=== PATIENT | male | born 1935 ===

== ENCOUNTER 2016-12-25 15:45 | Outpatient (RCR) | payer OTHER ==
[~2016-12-25 15:45] MED LIST: AMLODIPINE BESYL5 MG ORAL; BENAZEPRIL HCL40 MG ORAL; CARVEDILOL12.5 MG ORAL; CATAPRES0.1 MG ORAL; TRIAMTERENE-HC1 EAC7 PO; VESICARE5 MG ORAL
== END 2016-12-30 | disposition home or self-care (01) ==
LOC: PTY 15:45
PROVIDERS: ATTEND Internal Medicine
DX: G89.29 Other chronic pain (principal); M54.2 Cervicalgia; Z96.652 Presence of left artificial knee joint

== ENCOUNTER 2016-12-31 15:05 | Outpatient (RCR) | payer OTHER | END 2017-01-30 | disposition home or self-care (01) | LOC: PTY 15:05 | PROVIDERS: ATTEND Internal Medicine | DX: G89.29 Other chronic pain (principal); M54.2 Cervicalgia; Z96.652 Presence of left artificial knee joint | CPT/HCPCS: 97035; 97110; 97140; G0283 ==

== ENCOUNTER 2017-02-09 14:37 | Outpatient (RCR) | payer OTHER | END 2017-03-01 | disposition home or self-care (01) | LOC: PTY 14:37 | PROVIDERS: ATTEND Internal Medicine | DX: M54.2 Cervicalgia (principal) | CPT/HCPCS: 97035; 97110; 97140; G0283 ==

== ENCOUNTER 2017-03-31 16:00 | Outpatient (RCR) | payer OTHER | END 2017-04-01 | disposition home or self-care (01) | LOC: PTY 16:00 | PROVIDERS: ATTEND Internal Medicine | DX: M54.2 Cervicalgia (principal); G89.29 Other chronic pain ==

== ENCOUNTER 2017-04-03 11:00 | Outpatient (RCR) | payer OTHER | END 2017-05-01 | disposition home or self-care (01) | LOC: PTY 11:00 | PROVIDERS: ATTEND Internal Medicine | DX: M54.2 Cervicalgia (principal) | CPT/HCPCS: 97110; 97140; G0283 ==

== ENCOUNTER 2017-05-26 14:15 | Outpatient (RCR) | payer OTHER | END 2017-06-01 | disposition home or self-care (01) | LOC: PTY 14:15 | PROVIDERS: ATTEND Internal Medicine | DX: M54.2 Cervicalgia (principal) | CPT/HCPCS: 97110; 97140; G0283 ==

== ENCOUNTER 2017-06-04 13:00 | Outpatient (RCR) | payer OTHER | END 2017-07-02 | disposition home or self-care (01) | LOC: PTY 13:00 | PROVIDERS: ATTEND Internal Medicine | DX: M54.2 Cervicalgia (principal) | CPT/HCPCS: 97110; 97140; G0283 ==